=== PATIENT | female | born 1995 | race Two or more races ===

== ENCOUNTER 2024-05-22 09:53 | Inpatient (IN) | payer BC ==
[2024-05-22] MEDS ORDERED: CARBOPROST TROMETHAMINE 250 MCG/ML 1 ML AMP IM PRN (10:09)
[2024-05-22] MEDS ORDERED: TRANEXAMIC 1,000 MG/100ML-NACL 1,000 MG in EMPTY BAG 1 BAG IV PRN (10:09)
[2024-05-22] MEDS ORDERED: miSOPROStoL 200 MCG TAB PO PRN (10:09)
[2024-05-22] MEDS ORDERED: OXYTOCIN 10 UNIT/ML 1 ML VIAL IM PRN (10:09)
[2024-05-22] MEDS ORDERED: METHYLERGONOVINE 0.2 MG/ML 1 ML AMP IM PRN (10:09)
[2024-05-22 10:37] LABS: Basophils % (A) 0 %; Eosinophils # (A) 0.1 k/uL (0-0.7); Eosinophils % (A) 1 %; HCT 38.3 % (34.0-46.0); HGB 12.9 gm/dL (11.4-16.0); Lymphocytes # (A) 2.3 k/uL (1.0-4.8); Lymphocytes % (A) 26 %; MCH 29.4 pg (25.0-35.0); MCHC 33.7 g/dL (31.0-37.0); MCV 87.2 fL (80.0-100.0); Mean Platelet Volume 8.4; Monocytes # (A) 0.3 k/uL (0-1.0); Monocytes % (A) 4 %; Neutrophils # (A) 5.9 k/uL (1.3-7.7); Neutrophils % (A) 67 %; Platelet Count 222 k/uL (150-450); RBC 4.39 m/uL (3.80-5.40); RDW 13.2 % (11.5-15.5); WBC 8.9 k/uL (3.8-10.6)
[2024-05-22] MEDS: LACTATED RINGERS 1,000 ML IV SCH ×2 (11:05→16:30)
[2024-05-22] MEDS: CITRIC ACID-SODIUM CITRATE 15 ML CUP PO ONE (11:05)
[2024-05-22] MEDS ORDERED: OXYTOCIN 30 UNITS/500 ML NS BAG IV ONE (12:11)
[2024-05-22] MEDS ORDERED: ONDANSETRON 4 MG/2 ML VIAL ONE (12:11)
[2024-05-22] MEDS ORDERED: MORPHINE SULFATE (PF) 0.3 MG/0.3 ML SYR ONE (12:11)
[2024-05-22] MEDS ORDERED: PHENYLEPHRINE-0.9% NACL SYG 1,000 MCG/10 ML SYRINGE ONE (12:11)
[2024-05-22] MEDS ORDERED: KETOROLAC 15 MG/ML 1 ML VIAL ONE (12:11)
[2024-05-22] MEDS ORDERED: DEXAMETHASONE SOD PHOSPHATE 4 MG/ML 1 ML VIAL ONE (12:11)
--- NOTE | 2024-05-22 13:30 | P.HPOB ---
History of Present Illness H&P Date: 05/22/24 Chief Complaint: scheduled repeat section with bilateral salpingectomy Ms. Liriano is a 28 year old at 37 weeks and 3 days by LMP consistent with 12 week US who presents for scheduled repeat section due to IUGR <3%ile. The fetus has undergone surveillance with reassuring NSTs and umbilical artery cord dopplers. The has otherwise been uncomplicated. The patient herself has very limited Icelandic and uses her to translate. Obstetric history: 1 FTCS complicated by IUGR labs: blood type A positive, antibody screen negative, rubella immune, VDRL non-reactive, HBsAg negative, HIV negative, HCV Ab non-reactive, gonorrhea negative, chlamydia negative, 1 hour GTT elevated, 3 hour GTT wnl, s/p Tdap vaccine. Past Medical History Past Medical History: No Reported History History of Any Multi-Drug Resistant Organisms: None Reported Past Surgical History: Section Additional Past Surgical History / Comment(s): thumg surgery Past Anesthesia/Blood Transfusion Reactions: No Reported Reaction Past Psychological History: No Psychological Hx Reported Smoking Status: Never smoker Past Drug Use History: None Reported Medications and Allergies Home Medications Medication Instructions Recorded Confirmed Type Vit No.179/Iron/Folic 1 tab PO DAILY 05/22/24 05/22/24 History [ Tablet] RX: Aspirin 1 tab PO DAILY 05/22/24 05/22/24 History Allergies Allergy/AdvReac Type Severity Reaction Status Date / Time No Known Allergies Allergy Verified 05/22/24 10:06 Exam Vital Signs Temp Pulse Resp BP Pulse Ox 05/22/24 13:14 96.2 F L 84 18 102/57 98 05/22/24 10:03 97.0 F L 103 H 16 117/75 98 Intake and Output 05/21/24 05/22/24 05/22/24 22:59 06:59 14:59 Output Total 753 Balance -753 Output: Output, Quantitative 753 Blood Loss Other: Weight 76.204 kg Focused physical exam is performed. This is a healthy-appearing in no apparent distress. Breathing is non-labored. Abdomen is gravid and non-tender. Extremities non-tender and non-edematous. heart tones are reactive and reassuring on NST. Results Result Diagrams: 05/22/24 10:15 Assessment and Plan Assessment: 28 year old at 37 weeks and 3 days presenting for scheduled repeat section for severe IUGR
[2024-05-22] MEDS ORDERED: ONDANSETRON 4 MG/2 ML VIAL IVP PRN (13:34)
[2024-05-22] MEDS ORDERED: diphenhydrAMINE 50 MG/ML 1 ML VIAL IVP PRN ×2 (13:34)
[2024-05-22] MEDS ORDERED: ZOLPIDEM 5 MG TAB PO PRN (13:34)
[2024-05-22] MEDS ORDERED: SIMETHICONE 80 MG CHEWABLE PO PRN (13:34)
[2024-05-22] MEDS ORDERED: diphenhydrAMINE 25 MG CAP PO PRN (13:34)
[2024-05-22] MEDS ORDERED: NALOXONE 0.4 MG/ML 1 ML VIAL IV PRN (13:34)
[2024-05-22] MEDS ORDERED: diphenhydrAMINE 50 MG CAP PO PRN (13:34)
--- NOTE | 2024-05-22 13:35 | P.OP ---
Date of Procedure: 05/22/24 Preoperative Diagnosis: 1. Term IUP at 37 weeks and 3 days 2. Severe IUGR <3%ile 3. History of prior section 4. No desires for TOLAC Postoperative Diagnosis: Same Procedure(s) Performed: Repeat Lower Transverse Section with Bilateral Salpingectomy Implants: None Anesthesia: local Surgeon: Sindi Castorena Lapidarist #1: Susana Burks Estimated Blood Loss (ml): 753 IV fluids (ml): 1,500 Urine output (ml): 200 (clear yellow) Pathology: none sent Condition: stable Disposition: floor Indications for Procedure: Ms. Sanford is a 28 year old at 37 weeks and 3 days gestation presenting for scheduled repeat section due to desire for repeat and severe IUGR fetus <3% in growth. The risks, benefits, and alternatives to section were discussed with the patient including risk of bleeding, infection, damage to surrounding structures including bladder/bowels/ureters, and post-operative VTE. The patient understands these risks and desires to proceed with section. The patient also desires bilateral salpingectomy for permanent contraception. Risks of regret are discussed with the patient and she understands this is non-reversible. If she desires in the future it will need to be with IVF. Operative Findings: Viable female infant in cephalic presentation, colorless amniotic fluid, weight 2360 grams. Normal uterus, fallopian tubes, and ovaries. Description of Procedure: The patient was taken back to the operating room where spinal anesthesia was found to be adequate. Two grams of Ancef were given for infection prophylaxis. She was prepared and draped in the dorsal supine position with a leftward tilt. A Pfannenstiel skin incision was made with the scalpel. The incision was carried down to the fascia with a bovie. The fascia was incised and extended laterally with Yeh scissors. The superior aspect of the fascia was grasped with the Zahra clamps. The underlying rectus muscle was dissected off sharply with Yeh scissors. In a similar fashion, the inferior aspect of the fascia was elevated with Zahra clamps and the rectus muscle and pyramidalis were dissected off. Excellent hemostasis was achieved with the bovie. The rectus muscle was in the midline down to the level of the pubic symphysis. Pre- peritoneal fatty tissue was bluntly dissected to expose the peritoneum. The peritoneum was found to be free of adherent bowel and entered sharply with Yeh scissors. The peritoneal incision was extended superiorly and inferiorly to the bladder reflection with good visualization of the bladder. The bladder blade was inserted and vesicouterine peritoneum was identified. Intraabdominal survey revealed scant, clear peritoneal fluid and the thinned-out lower uterine segment. The vesicouterine peritoneum was opened with scissors and the bladder flap was developed. The bladder blade was repositioned to keep the bladder out of the operative field. The lower uterine segment was incised with a scalpel. The amniotic sac was ruptured with an Allis clamp and clear fluid was noted. The uterine incision was extended bluntly with lateral and upward traction. The fetus was in <<cephalic>> presentation. The head was elevated out of the pelvis with special attention paid to avoid using the uterine incision as a fulcrum. Gentle fundal pressure was applied once the head was brought into the incision. The was delivered with no difficulty and was noted to be crying spontaneously. The mouth and nose were suctioned with a bulb. The cord was clamped and cut. The infant was handed off to the property loss insurance claim adjuster. IV oxytocin was initiated to facilitate uterine contractions. The placenta was delivered intact with manual massage of uterine fundus. The uterus was then exteriorized and the inside of the uterus was gently wiped with a lap sponge to assure complete removal of placental membranes. The uterine incision was closed with 0-Vicryl suture in a running locked fashion. A second imbricating layer was placed with 0-Vicryl. The ovaries and tubes were found to be normal. A Ligasure device was used to sequentially cauterize and cut the fallopian tubes from the fimbriated ends to the level of the cornua bilaterally. The uterusand ovaries were then gently returned to the abdominal cavity. The abdomen was copiously suction ir rigated. The uterine incision was reinspected and several figure of eight sutures were placed along the incisio. Excellent hemostasis was noted. The fascial layer was closed with a 0-Vicryl suture. The subcutaneous tissue was reapproximated with 2-0 Plain Gut. The skin was closed with 4-0 Monocryl in a subcuticular fashion.The patient tolerated the procedure well. All the counts were correct times two. The patient was taken to the recovery room in a stable condition. A physician nutrition services assistant was utilized for the entire procedure due to the need for tissue retraction, dissection of vital structures, prevention and management of blood loss, and reduction in overall operative and anesthesia time as is the standard of care.
[2024-05-22] MEDS: ACETAMINOPHEN TAB 500 MG TAB PO SCH (16:30)
[2024-05-22] MEDS: METOCLOPRAMIDE 5 MG/ML 2 ML VIAL IVP PRN (18:05)
[2024-05-22] MEDS: KETOROLAC 15 MG/ML 1 ML VIAL IVP SCH (20:13)
[2024-05-22] MEDS: SENNOSIDES-DOCUSATE SODIUM 1 EACH TAB PO SCH (20:13)
[2024-05-23 05:08] LABS: Basophils % (A) 0 %; Eosinophils # (A) 0.1 k/uL (0-0.7); Eosinophils % (A) 1 %; HCT 34.3 % (34.0-46.0); HGB 11.4 gm/dL (11.4-16.0); Lymphocytes # (A) 2.5 k/uL (1.0-4.8); Lymphocytes % (A) 18 %; MCH 29.4 pg (25.0-35.0); MCHC 33.3 g/dL (31.0-37.0); MCV 88.4 fL (80.0-100.0); Mean Platelet Volume 8.8; Monocytes # (A) 0.7 k/uL (0-1.0); Monocytes % (A) 5 %; Neutrophils # (A) 10.6 k/uL (1.3-7.7); Neutrophils % (A) 76 %; Platelet Count 194 k/uL (150-450); RBC 3.89 m/uL (3.80-5.40)
--- NOTE | 2024-05-23 08:18 | P.PNOBGPC ---
Subjective - Subjective Principal diagnosis: s/p repeat section Interval history: The patient is doing well this morning and had no acute events overnight. She has no complaints this morning. She reports minimal lochia, passing flatus, voiding without difficulty, ambulating, and eating/drinking without nausea or vomiting. She is breast feeding her without difficulty. She denies chest pain, shortness of breathing, fevers, or chills overnight. She denies pain or swelling in the legs. Patient reports: Reports appetite normal, Reports voiding normally, Reports pain well controlled, Reports ambulating normally [place]: doing well, nursing well Objective - Vital Signs Latest vital signs: Vital Signs Temp Pulse Resp BP Pulse Ox 05/23/24 00:05 97.3 F L 65 16 111/73 99 05/22/24 20:00 97.8 F 75 16 110/67 99 05/22/24 17:00 96.4 F L 05/22/24 16:30 58 L 16 101/65 98 05/22/24 15:14 96.1 F L 64 18 102/65 99 05/22/24 14:59 60 18 95/56 98 05/22/24 14:44 54 L 18 94/56 96 05/22/24 14:29 61 18 88/55 95 05/22/24 14:13 58 L 16 91/52 97 05/22/24 13:59 75 16 102/51 98 05/22/24 13:44 76 16 92/51 99 05/22/24 13:29 77 18 94/50 99 05/22/24 13:14 96.2 F L 84 18 102/57 98 05/22/24 10:03 97.0 F L 103 H 16 117/75 98 Intake and Output 05/22/24 05/23/24 05/23/24 22:59 06:59 14:59 Intake Total 840 600 Output Total 415 1600 Balance 425 -1000 Intake: IV 600 Oral 840 Output: Urine 300 1600 Uretheral (Beltran) 200 Output, Quantitative 115 Blood Loss Other: Voiding Method Indwelling Catheter # Voids 1 - Exam Extremities: Present: normal Abdomen: Present: normal appearance, soft Incision: Present: dressed (dressing left in place as patient is ) Uterus: Present: normal, firm - Labs Labs: Abnormal Lab Results - Last 24 Hours (Table) 11/12/24 Range/Units 04:50 WBC 14.0 H (3.8-10.6) k/uL Neutrophils # 10.6 H (1.3-7.7) k/uL Assessment and Plan Assessment: 28 year old POD#1 s/p repeat with bilateral salpingectomy Plan: 1. Postoperative. Patient meeting postoperative milestones appropriately. 2. Viable female . Doing well at bedside, nursing well. Dispo: Continue inpatient management at this time. Anticipate discharge home tomorrow.
--- NOTE | 2024-05-23 10:39 | P.PN ---
Progress Note - Text 05/23/24 621am 28-year-old female status post with spinal Duramorph. Patient seen and evaluated for postop pain control, she has a VAS of 1 with no complaint of nausea vomiting or pruritus. Doing well
[2024-05-23] MEDS: IBUPROFEN 800 MG TAB PO SCH (14:36)
--- NOTE | 2024-05-24 08:10 | P.DS ---
Providers Date of admission: 05/22/24 09:53 Expected date of discharge: 05/24/24 Attending physician: Sindi Castorena MD Primary care physician: Stated None Hospital Course: Ms. Sanford is a 28 year old POD#2 s/p uncomplicated repeat section with bilateral salpingectomy. The patient is doing well this morning and had no acute events overnight. She has no complaints this morning. She reports minimal lochia, passing flatus, voiding without difficulty, ambulating, and eating/drinking without nausea or vomiting. doing well at bedside, breastf janis is going well, she has received a breast pump through insurance. She denies chest pain, shortness of breathing, fevers, or chills overnight. She denies pain or swelling in the legs. Postoperative restrictions are reviewed with the patient including pelvic rest for 6 weeks, no lifting heavier than 15 pounds for 6 weeks. The patient is encouraged to call the office if she experiences any heavy bleeding, foul-smelling discharge, breast complaints, or any if she has any other concerns. She will follow up in the office with in 2 weeks for postoperative exam. She will go home with Motrin, Tylenol, and Oxycodone for pain. All questions are answered. Assessment: 28 year old POD#2 s/p repeat section with bilateral salpingectomy Patient Condition at Discharge: Good Plan - Discharge Summary New Discharge Prescriptions: New Ibuprofen [Motrin] 600 mg PO Q6HR PRN #30 tab PRN Reason: Mild Pain (Scale 1 To 3) oxyCODONE HCL [Roxicodone] 5 mg PO Q6HR PRN 3 Days #12 tab PRN Reason: Breakthrough Pain Acetaminophen Tab [Tylenol] 650 mg PO Q6H PRN #30 tab PRN Reason: Mild Pain (Scale 1 To 3) No Action Vit No.179/Iron/Folic [ Tablet] 1 tab PO DAILY Aspirin 1 tab PO DAILY Discharge Medication List Aspirin 1 tab PO DAILY 05/22/24 [History] Vit No.179/Iron/Folic [ Tablet] 1 tab PO DAILY 05/22/24 [History] Acetaminophen Tab [Tylenol] 650 mg PO Q6H PRN #30 tab 05/24/24 [Rx] Ibuprofen [Motrin] 600 mg PO Q6HR PRN #30 tab 05/24/24 [Rx] oxyCODONE HCL [Roxicodone] 5 mg PO Q6HR PRN 3 Days #12 tab 05/24/24 [Rx] Follow up Appointment(s)/Referral(s): Sindi Castorena MD [STAFF PHYSICIAN] - 06/07/24 11:30 am (Post Appointment 07-03-2024 at 1:15) Activity/Diet/Wound Care/Special Instructions: Instructions 1. Do not begin any exercise program for 3 weeks. 2. Do not resume sexual relations for 6 weeks or longer if uncomfortable. 3. You may take tub baths or showers at any time. 4. You may use tampons if desired after 6 weeks. 5. Keep any areas repaired with stitches clean and dry. 6. If you are not nursing, wear a good fitting, supportive bra during the day and limit fluid intake for at least 1 week to prevent breast engorgement. 7. Call the office, , within the next week to make appointment for your 6 week checkup if it has not already been made. 8. Report any of the following occurrences to the doctor promptly: a. Heavy, excessive bleeding b. Chills, fever c. Burning or frequency of urination d. Pain or redness and breasts if nursing e. Increasing pain or swelling of vulva (stitches). In addition to the above instructions, the following additional should be followed: 1. No heavy lifting or straining (exercising) until after 6 week checkup. 2. Keep abdominal incision clean and dry: You may wear a dressing if more comfortable. 3. Make office appointment for 2 weeks after delivery date. Discharge Disposition: HOME SELF-CARE
[2024-05-24 08:57] VITALS: PULSE 68; RESP 17
[2024-05-24 12:00] VITALS: BP 106/68; TEMP 97.6
== END 2024-05-24 15:15 | disposition home or self-care (01) | DRG 785 ==
LOC: 4FBP 09:53
PROVIDERS: ADMIT Obstetrics & Gynecology; ATTEND Obstetrics & Gynecology
PROC: 0UB70ZZ Excision of Bilateral Fallopian Tubes, Open Approach (ICD-10-PCS; 2024-05-22)
PROC: 10D00Z1 Extraction of Products of Conception, Low, Open Approach (ICD-10-PCS; principal; 2024-05-22 12:27)
DX: O34.211 Maternal care for low transverse scar from previous cesarean delivery (principal); O14.10 Severe pre-eclampsia, unspecified trimester; O36.5930 Maternal care for other known or suspected poor fetal growth, third trimester, not applicable or unspecified; Z30.2 Encounter for sterilization; Z37.0 Single live birth; Z3A.37 37 weeks gestation of pregnancy; Z79.82 Long term (current) use of aspirin
CPT/HCPCS: 85025; 86850; 86900; 86901; 88302